=== PATIENT | male | born 1965 | race Caucasian/White ===

== ENCOUNTER 2016-11-10 09:47 | Emergency (ER) | payer MEDICARE ==
--- NOTE | 2016-11-10 10:46 | RAD ---
THREE VIEWS LEFT FOOT: Date: 11-10-16 History: Left ankle injury after patient stepped down onto foot and heard a pop. Patient has had swe lling to the foot since that time. FINDINGS: There is a subtle lucency seen in the region of the navicular bone on the lateral view of the ankle with lucency seen in the midportion of the navicular bone on the AP view of the left foot. Findings are suggestive of a nondisplaced stress type fracture involving the navicular bone. No additional fr acture is seen. There is no dislocation. The ankle mortise is congruent. Plantar calcaneal enthesoph yte is present. IMPRESSION: Findings suspicious for nondisplaced fracture likely related to stress fracture involving the left n avicular bone. Further evaluation with MRI versus CT scan is recommended. POS: KENISHA
--- NOTE | 2016-11-10 10:50 | RAD ---
THREE VIEWS LEFT FOOT: Date: 11-10-16 History: Patient stepped down on foot and heard a pop. Patient reports swelling to foot since that t shayla. FINDINGS: There is a lucency seen in the midportion of the navicular bone suggestive of a nondisplaced stress type fracture. No additional fracture is seen and there is no dislocation. Lisfranc joint is normall y aligned. Plantar calcaneal enthesophyte is seen. IMPRESSION: Nondisplaced fracture left navicular bone. Confirmation with CT versus MRI is recommended. POS: KENISHA
--- NOTE | 2016-11-10 11:37 | CT ---
CT OF LEFT FOOT: Clinical history: Pain. FINDINGS: Lisfranc joint is maintained. There is a mildly comminuted fracture or the navicular. Intraarticular gap measuring between 3-4 mm involves the talonavicular articulation. There is a slight intraarticu lar gap at the articular surface at the navicular with the medial and intermediate cuneiforms. Heter otopic density projects at the lateral aspect of the calcaneal cuboid articulation. There is soft ti ssue edema of the foot. IMPRESSION: Comminuted navicular fracture, as above. POS: JEAN-CLAUDE
== END 2016-11-10 11:54 | disposition home or self-care (01) ==
LOC: ERS 09:47
DX: S92.255A Nondisplaced fracture of navicular [scaphoid] of left foot, initial encounter for closed fracture (principal); F31.9 Bipolar disorder, unspecified; F20.9 Schizophrenia, unspecified; F17.210 Nicotine dependence, cigarettes, uncomplicated; E11.9 Type 2 diabetes mellitus without complications; X50.9XXA Other and unspecified overexertion or strenuous movements or postures, initial encounter
CPT/HCPCS: 29515

== ENCOUNTER 2016-12-06 00:32 | Emergency (ER) | payer MEDICARE ==
[2016-12-06 01:15] LABS: #Basophils 0.1 thou/uL (0.0-0.2); #Eosinphils 0.4 thou/uL (0.0-0.7); #Neutrophils 5.3 thou/uL (1.40-6.50); %Basophils 0.9 % (0.0-1.0); %Eosinophils 3.3 % (0.0-10.0); %Lymphocytes 42.1 % (21.0-51.0); %Monocytes 8.3 % (0.0-10.0); Hematocrit 52.4 % (42.0-52.0); Mean Platelet Volume 6.7 fL (7.4-10.4); Red Blood Cell (RBC) Count 5.32 mill/uL (4.70-6.10); White Blood Cell (WBC) Count 11.8 thou/uL (4.8-10.8)
[2016-12-06 01:28] LABS: ALT (SGPT) 27 U/L (8-55); AST (SGOT) 19 U/L (5-34); Alkaline Phosphatase 108 U/L (40-150); Anion Gap 15 mmol/L (10-20); BUN (Urea Nitrogen) 14 mg/dL (8.4-25.7); Bilirubin, Total 0.3 mg/dL (0.2-1.2); CK (CPK) 74 U/L (30-200); Calc. Creatinine Clearance 0 mL/min (70-130); Calcium 9.7 mg/dL (7.8-10.44); Carbon Dioxide 23 mmol/L (22-29); Chloride 107 mmol/L (98-107); Estimated GFR-MDRD 73; Globulin 3.1 g/dL (2.4-3.5); Protein, Total 6.9 g/dL (6.0-8.3)
[2016-12-06 01:33] LABS: Troponin I Less than 0.010 ng/mL (< 0.028)
[2016-12-06] MEDS ORDERED: Mag-Al 1200 mg/1200 mg/30 ML UDCUP ONE (01:51)
[2016-12-06] MEDS ORDERED: Lidocaine Viscous Sol 2% 15 ml UD Cup ONE (01:51)
[2016-12-06 04:06] LABS: Troponin I 0.022 ng/mL (< 0.028)
--- NOTE | 2016-12-06 08:41 | RAD ---
CHEST 1 VIEW: Date: 12/06/16 COMPARISON: 10/07/16. HISTORY: Chest pain. FINDINGS: Normal cardiac silhouette. Pulmonary vessels and hilum are normal. Costophrenic angles are clear. No mass. No consolidation. No pneumothorax. No osseous abnormalities. IMPRESSION: No acute cardiopulmonary process. POS: [facility]
== END 2016-12-06 04:33 | disposition home or self-care (01) ==
LOC: ERS 00:32
DX: F43.9 Reaction to severe stress, unspecified (principal); E11.9 Type 2 diabetes mellitus without complications; F31.9 Bipolar disorder, unspecified; F20.9 Schizophrenia, unspecified; F17.210 Nicotine dependence, cigarettes, uncomplicated
CPT/HCPCS: 36415; 71010; 80053; 82550; 82553; 84484; 85025; 93005

== ENCOUNTER 2017-05-25 11:39 | Emergency (ER) | payer MEDICARE | END 2017-05-25 11:54 | disposition left against medical advice (07) | LOC: ERS 11:39 | DX: Z53.21 Procedure and treatment not carried out due to patient leaving prior to being seen by health care provider (principal) ==

== ENCOUNTER 2021-06-10 09:45 | Observation (INO) | payer MEDICARE ==
[2021-06-10 10:36] LABS: #Basophils 0.1 thou/uL (0.0-0.2); #Eosinphils 0.6 thou/uL (0.0-0.7); #Monocytes 0.8 thou/uL (0.11-0.59); #Neutrophils 3.7 thou/uL (1.40-6.50); %Basophils 0.9 % (0.0-1.0); %Eosinophils 7.1 % (0.0-10.0); %Monocytes 9.2 % (0.0-10.0); %Neutrophils 45.9 % (42.0-75.0); Hemoglobin 18.3 g/dL (14.0-18.0); Mean Corpuscular Hemoglobin 31.8 pg (27.0-31.0); Mean Corpuscular Volume 96.4 fL (78.0-98.0); Mean Platelet Volume 7.1 fL (7.4-10.4); Platelet Count 264 thou/uL (130-400); RBC Distribution Width 13.2 % (11.5-14.5); Red Blood Cell (RBC) Count 5.75 mill/uL (4.70-6.10); White Blood Cell (WBC) Count 8.2 thou/uL (4.8-10.8)
[2021-06-10 10:59] LABS: ALT (SGPT) 36 U/L (8-55); AST (SGOT) 37 U/L (5-34); Alkaline Phosphatase 149 U/L (40-110); Anion Gap 12 mmol/L (10-20); BUN (Urea Nitrogen) 12 mg/dL (8.4-25.7); Bilirubin, Total 0.5 mg/dL (0.2-1.2); Calc. Creatinine Clearance 0 mL/min (70-130); Calcium 9.5 mg/dL (7.8-10.44); Carbon Dioxide 24 mmol/L (22-29); Chloride 105 mmol/L (98-107); Globulin 3.7 g/dL (2.4-3.5); Glucose 104 mg/dL (70-105); Protein, Total 7.7 g/dL (6.0-8.3); Sodium 137 mmol/L (136-145)
[2021-06-10] MEDS ORDERED: Aspirin Chewable 81 MG TAB ONE (11:12)
[2021-06-10] MEDS ORDERED: Nitroglycerin 2% Ointment 1 INCH/1 GM Packet ONE (12:46)
[2021-06-10] MEDS ORDERED: Acetaminophen 500 MG TAB ONE (12:46)
[2021-06-10] MEDS ORDERED: Ondansetron PF 4 MG/2 ML Vial ONE (13:52)
[2021-06-10 14:54] LABS: Troponin I Less than 0.010 ng/mL (< 0.028)
[2021-06-10] MEDS ORDERED: Acetaminophen 325 MG TAB PO PRN (15:17)
[2021-06-10] MEDS ORDERED: Ondansetron ODT 4 MG TAB PO PRN (15:17)
[2021-06-10] MEDS ORDERED: Ondansetron PF 4 MG/2 ML Vial IVP PRN (15:17)
[2021-06-10] MEDS ORDERED: Nitroglycerin 0.4 MG TAB (25 Tab Bottle) SL PRN (15:18)
[2021-06-10] MEDS ORDERED: Nicotine 14 MG PATCH TD PRN (15:30)
[2021-06-10] MEDS: Morphine 4 MG/ML VIAL SLOW IVP PRN ×2 (16:22→20:44)
[2021-06-10 16:30] VITALS: BMI 46.7
[2021-06-10 18:03] LABS: Troponin I 0.064 ng/mL (< 0.028)
[2021-06-10] MEDS: Nitroglycerin 2% Ointment 1 INCH/1 GM Packet TOP SCH (19:28)
[2021-06-10] MEDS ORDERED: Atorvastatin Calcium 40 MG TAB PO SCH (21:00)
[2021-06-10 21:47] LABS: Amphetamine Detected (NotDetected); Barbiturates Screen Not Detected (NotDetected); Benzodiazepine Screen Not Detected (NotDetected); Cocaine Metabolite Screen Not Detected (NotDetected); Methadone Not Detected (NotDetected); Methamphetamine Detected (NotDetected); Opiate Screen Detected (NotDetected); Oxycodone Screen Not Detected (NotDetected); Phencyclidine (PCP) Not Detected (NotDetected); THC/Cannabinoid Screen Detected (NotDetected); Tricyclic Screen Not Detected (NotDetected)
[2021-06-11 00:25] LABS: SARS-CoV-2 PCR by NAA Not Detected (NotDetected)
[2021-06-11] MEDS: Morphine 4 MG/ML VIAL SLOW IVP PRN ×3 (01:06→09:33)
[2021-06-11 05:06] LABS: #Basophils 0.1 thou/uL (0.0-0.2); #Eosinphils 0.5 thou/uL (0.0-0.7); #Lymphocytes 2.7 thou/uL (1.20-3.40); #Monocytes 0.9 thou/uL (0.11-0.59); #Neutrophils 6.2 thou/uL (1.40-6.50); %Basophils 0.7 % (0.0-1.0); %Eosinophils 4.4 % (0.0-10.0); %Lymphocytes 26.3 % (21.0-51.0); %Monocytes 8.3 % (0.0-10.0); %Neutrophils 60.3 % (42.0-75.0); Hemoglobin 16.8 g/dL (14.0-18.0); Mean Corpuscular HGB CONC 32.1 g/dL (32.0-36.0); Mean Corpuscular Hemoglobin 31.3 pg (27.0-31.0); Mean Corpuscular Volume 97.5 fL (78.0-98.0); Platelet Count 258 thou/uL (130-400); RBC Distribution Width 13.4 % (11.5-14.5); Red Blood Cell (RBC) Count 5.36 mill/uL (4.70-6.10); White Blood Cell (WBC) Count 10.3 thou/uL (4.8-10.8)
[2021-06-11 05:14] LABS: Hemoglobin A1c 6.1 % (4.0-6.0)
[2021-06-11 05:32] LABS: Anion Gap 12 mmol/L (10-20); BUN (Urea Nitrogen) 13 mg/dL (8.4-25.7); Calc. Creatinine Clearance 247 mL/min (70-130); Calcium 9.2 mg/dL (7.8-10.44); Carbon Dioxide 24 mmol/L (22-29); Cardiac Risk 3.6 (Less than 4.5); Chloride 105 mmol/L (98-107); Cholesterol 162 mg/dl (< 200 Desired); Glucose 106 mg/dL (70-105); HDL Cholesterol 45 mg/dL (>60 Neg Risk); LDL Cholesterol, Calculated 103 mg/dL; Magnesium 2.1 mg/dL (1.6-2.6); Potassium 4.2 mmol/L (3.5-5.1); Sodium 137 mmol/L (136-145); Triglycerides 71 mg/dL (Less than 150)
[2021-06-11] MEDS: Nitroglycerin 2% Ointment 1 INCH/1 GM Packet TOP SCH ×2 (05:41→13:24)
[2021-06-11] MEDS ORDERED: Regadenoson 0.4 MG/5 ML SYRINGE ONE (08:43)
[2021-06-11] MEDS ORDERED: Aspirin Chewable 81 MG TAB PO SCH (09:00)
[2021-06-11] MEDS ORDERED: Enoxaparin Sodium 40 MG/0.4 ML SYRINGE SC SCH (09:00)
[2021-06-11 12:15] VITALS: BP 150/90; TEMP 97.9
== END 2021-06-11 14:06 | disposition left against medical advice (07) ==
LOC: ERS 09:45 → 2SW 14:01
PROVIDERS: ADMIT Internal Medicine; ATTEND Internal Medicine
DX: R07.9 Chest pain, unspecified (principal); I16.0 Hypertensive urgency; G89.29 Other chronic pain; M79.605 Pain in left leg; M79.89 Other specified soft tissue disorders; F17.210 Nicotine dependence, cigarettes, uncomplicated; I10 Essential (primary) hypertension; R74.01 Elevation of levels of liver transaminase levels; I08.1 Rheumatic disorders of both mitral and tricuspid valves; Z53.29 Procedure and treatment not carried out because of patient's decision for other reasons; Z88.6 Allergy status to analgesic agent; Z20.822 Contact with and (suspected) exposure to COVID-19
CPT/HCPCS: 71045; 73590; 73630; 78452; 80048; 80053; 80061; 80306; 83036; 83735; 83880; 84443; 84484 ×3; 85025 ×2; 93005; 93017; 93306; 93971; 94760; 96374; 99285; A9500; U0003; U0005; 36415; 93010; 96372; 96375; 96376; G0378; J1650; J2270; J2405; J2785

== ENCOUNTER 2025-02-02 22:54 | Emergency (ER) | payer MEDICARE ==
[2025-02-03 00:49] LABS: #Basophils 0.05 10x3/uL (0.0-0.2); #Eosinophils 0.13 10x3/uL (0.0-0.7); #Monocytes 1.09 10x3/uL (0.11-0.59); #Neutrophils 7.23 10x3/uL (1.40-6.50); %Basophils 0.5 % (0.0-1.0); %Eosinophils 1.2 % (0.0-10.0); %Lymphocytes 22.1 % (21.0-51.0); %Monocytes 10.0 % (0.0-10.0); %Neutrophils 65.9 % (42.0-75.0); Hematocrit 46.6 % (42.0-52.0); Hemoglobin 15.4 g/dL (14.0-18.0); Mean Corpuscular Hemoglobin 29.4 pg (27.0-31.0); Mean Corpuscular Volume 88.9 fL (78.0-98.0); Platelet Count 190 10x3/uL (130-400); Red Blood Cell (RBC) Count 5.24 mill/uL (4.70-6.10); White Blood Cell (WBC) Count 10.95 10x3/uL (4.8-10.8)
[2025-02-03 01:21] LABS: ALT (SGPT) 17 U/L (Less than 45); AST (SGOT) 37 U/L (11-34); Albumin 3.4 g/dL (3.1-4.5); Alkaline Phosphatase 124 U/L (40-110); Anion Gap 16 mmol/L (10-20); BUN (Urea Nitrogen) 16 mg/dL (8.4-25.7); Bilirubin, Total 0.8 mg/dL (0.3-1.2); Calc. Creatinine Clearance 0 mL/min (70-130); Calcium 10.0 mg/dL (7.8-10.44); Carbon Dioxide 22 mmol/L (22-29); Chloride 104 mmol/L (98-107); Globulin 4.1 g/dL (2.4-3.5); Glucose 126 mg/dL (70-105); Potassium 4.1 mmol/L (3.5-5.1); Sodium 138 mmol/L (136-145)
[2025-02-03] MEDS ORDERED: HYDROcodone/Acetaminophen 10/325 mg Tablet ONE (01:40)
[2025-02-03] MEDS ORDERED: cefTRIAXone (ROCEPHIN) 2 GM VIAL ONE (01:40)
== END 2025-02-03 02:25 | disposition home or self-care (01) ==
LOC: ERS 22:54
DX: L03.115 Cellulitis of right lower limb (principal); I10 Essential (primary) hypertension; F17.210 Nicotine dependence, cigarettes, uncomplicated; Z96.651 Presence of right artificial knee joint; Z79.899 Other long term (current) drug therapy
CPT/HCPCS: 80053; 83605; 85025; 87040; 93971; J0696; 36415; 87077; 96365